=== PATIENT | male | born 1995 | race Caucasian/White ===

== ENCOUNTER 2018-10-26 12:16 | Emergency (ER) | payer OTHER ==
[~2018-10-26] VITALS: Ht 182.9 cm; Wt 102.0 kg
[2018-10-26 12:21] VITALS: BP 143/68
== END 2018-10-26 13:36 | disposition home or self-care (01) ==
LOC: ER 12:16
DX: G56.03 Carpal tunnel syndrome, bilateral upper limbs (principal)
CPT/HCPCS: 29125; 99283